=== PATIENT | female | born 1975 | race Caucasian/White ===

== ENCOUNTER → 2021-11-19 | Outpatient (CLI) | payer MEDICAID | LOC: MC.RAD 14:15 → EDBD 14:36 | DX: Z12.31 Encounter for screening mammogram for malignant neoplasm of breast (principal) ==

== ENCOUNTER 2022-12-17 14:00 | Outpatient (RCR) | payer MEDICAID | END 2022-12-22 | disposition home or self-care (01) | LOC: MKS.ESL.PT | DX: M25.50 Pain in unspecified joint (principal); G89.29 Other chronic pain ==

== ENCOUNTER 2022-12-31 14:00 | Outpatient (RCR) | payer MEDICAID | END 2023-01-12 16:11 | disposition home or self-care (01) | LOC: MKS.ESL.PT 14:00 | DX: M25.50 Pain in unspecified joint (principal); G89.29 Other chronic pain ==

== ENCOUNTER → 2024-04-14 | Outpatient (CLI) | payer OTHER | LOC: MC.RAD 14:48 | DX: Z12.31 Encounter for screening mammogram for malignant neoplasm of breast (principal) ==